=== PATIENT | male | born 2000 | race Caucasian/White ===

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

== ENCOUNTER 2024-03-26 15:35 | Emergency (ER) | payer MEDICAID ==
[~2024-03-26] VITALS: Ht 167.6 cm; Wt 72.7 kg
[2024-03-26 16:09] VITALS: BP 156/83; PULSE 65; RESP 18; O2SAT 98
[2024-03-26] MEDS ORDERED: PRED10TA23 PO (17:30)
[2024-03-26] MEDS ORDERED: AMOX-580 PO (17:30)
[2024-03-26 17:43] VITALS: TEMP 97.8
== END 2024-03-26 17:45 | disposition home or self-care (01) ==
LOC: ER 15:36
DX: K04.7 Periapical abscess without sinus (principal); Z88.0 Allergy status to penicillin; Z79.899 Other long term (current) drug therapy
CPT/HCPCS: 99283